=== PATIENT | male | born 1980 | race Caucasian/White ===

== ENCOUNTER 2019-04-15 10:01 | Emergency (ER) | payer OTHER ==
[2019-04-15 10:07] VITALS: BP 137/97
--- NOTE | 2019-04-15 10:35 | UC ---
Eye Complaint HPI - HPI Summary HPI Summary: 38-year-old male presents with onset of right upper eyelid tenderness and swelling yesterday. Patient does wear contacts. Denies fever, chills, eye pain , eye redness, visual disturbances, purulent drainage, or URI symptoms. - History of Current Complaint Chief Complaint: UCEye Stated Complaint: RT EYE COMP Time Seen by Provider: 04/15/19 10:21 Hx Obtained From: Patient Pain Intensity: 1 - Allergies/Home Medications Allergies/Adverse Reactions: Allergies Allergy/AdvReac Type Severity Reaction Status Date / Time No Known Allergies Allergy Verified 04/15/19 10:06 Home Medications: Home Medications NK [No Home Medications Reported] 04/15/19 [History Confirmed 04/15/19] PMH/Surg Hx/FS Hx/Imm Hx Previously Healthy: Yes - Denies significant PMH - Surgical History Surgical History: Yes Surgery Procedure, Year, and Place: [facility] - Family History Known Family History: Positive: None - Social History Occupation: Employed Full-time Lives: Alone Alcohol Use: Occasionally Substance Use Type: None Smoking Status (MU): Light Every Day Tobacco Smoker Review of Systems All Other Systems Reviewed And Are Negative: Yes Constitutional: Negative: Fever, Chills Eyes: Positive: Other - See HPI. Negative: Drainage, Eye Redness ENT: Negative: Sore Throat, Ear Ache, Nasal Discharge, Sinus Congestion, Sinus Pain/Tenderness Respiratory: Negative: Cough Cardiovascular: Positive: Negative Gastrointestinal: Positive: Negative Musculoskeletal: Positive: Negative Neurological: Positive: Negative Is Patient Immunocompromised?: No Physical Exam - Summary Physical Exam Summary: GENERAL APPEARANCE: Well developed, well nourished, alert and cooperative, and appears to be in no acute distress. EYES: Conjunctiva clear. No drainage. PERRL, EOM intact. Vision is grossly intact. Mild erythema and edema of the inner upper right eyelid. EARS: External auditory canals and tympanic membranes clear, hearing grossly intact. NOSE: No nasal discharge. THROAT: Pharynx normal. No tonsilar inflammation, swelling, exudate, or lesions. Uvula midline. Oral cavity normal. Teeth and gingiva in good general condition. NECK: Neck supple, non-tender without lymphadenopathy. CARDIAC: Normal S1 and S2. No S3, S4 or murmurs. Rhythm is regular. There is no peripheral edema, cyanosis or pallor. Extremities are warm and well perfused. Capillary refill is less than 2 seconds. Peripheral pulses intact. LUNGS: Clear to auscultation without rales, rhonchi, wheezing or diminished breath sounds. ABDOMEN: Positive bowel sounds. Soft, nondistended, nontender. No guarding or rebound. No masses or hepatosplenomegally. MUSKULOSKELETAL: ROM intact to all extremities. No joint erythema or tenderness. Normal muscular development. Normal gaitl. SKIN: Skin normal color, texture and turgor with no lesions or eruptions. Triage Information Reviewed: Yes Vital Signs: Initial Vital Signs Temp 98.7 F 04/15/19 10:02 Pulse 90 04/15/19 10:02 Resp 20 04/15/19 10:02 BP 137/97 04/15/19 10:02 Pulse Ox 100 04/15/19 10:02 Vital Signs Reviewed: Yes Eye Complaint Course/Dx - Course Course Of Treatment: 38-year-old male presents with onset of right upper eyelid tenderness and swelling yesterday. Patient does wear contacts. Denies fever, chills, eye pain , eye redness, visual disturbances, purulent drainage, or URI symptoms. Afebrile. Vital signs stable. Patient had mild erythema and edema of the in her right upper eyelid consistent with an internal hordeolum. Remainder of exam was unremarkable. Recommending conservative treatment for a right upper eye lid stye. He is to return here or follow up with his primary care provider in 5-7 days if symptoms are not improving. Dysmetric tablets and warning symptoms were reviewed with the patient. Verbalizes understanding and agrees with plan of care. - Differential Dx/Diagnosis Differential Diagnosis/HQI/PQRI: Conjunctivitis, Corneal Abrasion, Foreign Body Provider Diagnosis: Internal hordeolum of right eye Discharge ED - Sign-Out/Discharge Documenting (check all that apply): Patient Departure All imaging exams completed and their final reports reviewed: No Studies - Discharge Plan Condition: Stable Disposition: HOME Patient Education Materials: Stye (ED) Referrals: No Primary Care Phys,NOPCP [Primary Care Provider] - Additional Instructions: Your history and exam are consistent with an internal hordeolum (stye) of the right upper eye lid. This is caused by a blockage of one of the glands of the eyelid and is not an infectious process. These will typically resolve on their own over several days. Apply a warm moist compress to the eye for 15 minutes 3-4 times a day followed by gentle massage of the eyelid to try to help remove the blockage. Use acetaminophen (Tylenol) or ibuprofen (Advil, Motrin) according to directions as needed for any pain. Return here or follow-up with your primary care provider in 5-7 days if symptoms are not improving. Seek immediate medical attention if you develop any severe eye pain, visual disturbances, severe swelling of the eyelid, redness of the eye, purulent drainage from the eye, or any worsening of symptoms. - Billing Disposition and Condition Condition: STABLE Disposition: Home
== END 2019-04-15 10:42 | disposition home or self-care (01) ==
LOC: UCEAST 10:01
DX: H00.021 Hordeolum internum right upper eyelid (principal); F17.290 Nicotine dependence, other tobacco product, uncomplicated
CPT/HCPCS: 99211; G0463

== ENCOUNTER 2019-09-23 11:07 | Emergency (ER) | payer OTHER ==
[2019-09-23 11:41] VITALS: BP 124/86
--- NOTE | 2019-09-23 12:14 | UC ---
Truncal Trauma HPI - HPI Summary HPI Summary: c/o L side rib pain x 1 week. States last tuesday- leaned over a metal bar at work, and following day, developed the pain. Denies any injury. - History Of Current Complaint Chief Complaint: UCGeneralIllness Stated Complaint: WC LEFT SIDE/RIB INJURY Time Seen by Provider: 09/23/19 11:54 Hx Obtained From: Patient Onset/Duration: Sudden Onset, Lasting Days Severity Initially: Moderate Severity Currently: Moderate Pain Intensity: 6 Mechanism Of Injury: Blunt Trauma Aggravating Factor(s): Movement Alleviating factor(s): Nothing - Allergies/Home Medications Allergies/Adverse Reactions: Allergies Allergy/AdvReac Type Severity Reaction Status Date / Time No Known Allergies Allergy Verified 09/23/19 11:35 Home Medications: Home Medications NK [No Home Medications Reported] 04/15/19 [History Confirmed 09/23/19] PMH/Surg Hx/FS Hx/Imm Hx Previously Healthy: Yes - Surgical History Surgical History: Yes Surgery Procedure, Year, and Place: [facility] 2005 - Family History Known Family History: Positive: None Negative: Hypertension - Social History Alcohol Use: Weekly Substance Use Type: Marijuana Substance Use Comment - Amount & Last Used: twice monthly Smoking Status (MU): Heavy Every Day Tobacco Smoker Type: Cigarettes Amount Used/How Often: 1/2 PPD Review of Systems All Other Systems Reviewed And Are Negative: Yes Skin: Positive: Bruising Is Patient Immunocompromised?: No Physical Exam Triage Information Reviewed: Yes Appearance: Well-Appearing, Well-Nourished, Pain Distress Vital Signs: Initial Vital Signs Temp 97.8 F 09/23/19 11:35 Pulse 101 09/23/19 11:35 Resp 14 09/23/19 11:35 BP 124/86 09/23/19 11:35 Pulse Ox 96 09/23/19 11:35 Vital Signs Reviewed: Yes Eye Exam: Normal ENT Exam: Normal Dental Exam: Normal Neck exam: Normal Respiratory Exam: Normal Respiratory: Positive: Chest non-tender, Lungs clear, Normal breath sounds Cardiovascular Exam: Normal Cardiovascular: Positive: RRR, No Murmur, Pulses Normal Abdominal Exam: Normal Abdomen Description: Positive: Nontender, No Organomegaly, Soft, CVA Tenderness (R) - neg, CVA Tenderness (L) - neg Bowel Sounds: Positive: Present Musculoskeletal: Positive: No Edema, ROM Limited @ - in traunk twisting due to pain Neurological Exam: Normal Psychological Exam: Normal Skin: Positive: Other - bruising Truncal Trauma Course/Dx - Course Course Of Treatment: hx obtained, exam performed ,meds reviewed, xray obtained - Differential Dx/Diagnosis Differential Diagnosis/HQI/PQRI: Chest Wall Contusion, Rib Fracture Provider Diagnosis: Closed traumatic nondisplaced fracture of rib Discharge ED - Sign-Out/Discharge Documenting (check all that apply): Patient Departure All imaging exams completed and their final reports reviewed: Yes - Discharge Plan Condition: Stable Disposition: HOME Patient Education Materials: Rib Fracture (ED) Referrals: No Primary Care Phys,NOPCP [Primary Care Provider] - Additional Instructions: 1. stay moving, use the muscle relaxors as needed 2. Heat the area 3. Follow up with any respiratory difficultly - Billing Disposition and Condition Condition: STABLE Disposition: Home
== END 2019-09-23 13:06 | disposition home or self-care (01) ==
LOC: UCCORT 11:07
DX: S22.32XA Fracture of one rib, left side, initial encounter for closed fracture (principal); F17.210 Nicotine dependence, cigarettes, uncomplicated; X50.0XXA Overexertion from strenuous movement or load, initial encounter; Y92.9 Unspecified place or not applicable; Y99.0 Civilian activity done for income or pay
CPT/HCPCS: 99212; G0463